=== PATIENT | female | born 1985 ===

== ENCOUNTER 2024-11-06 17:34 | Emergency (ER) | payer BC ==
[~2024-11-06] VITALS: Ht 165.1 cm; Wt 63.6 kg
[2024-11-06 17:43] VITALS: BP 129/89; PULSE 88; TEMP 98.4; O2SAT 98
[2024-11-06 17:53] VITALS: RESP 16
[2024-11-06] MEDS: HYDROcodone/acetaminophen 5mg/325mg tablet PO STA (17:53)
--- NOTE | 2024-11-06 18:19 | RADIOLOGY REPORT ---
CLINICAL INDICATION: FOOT PAIN left TECHNIQUE: 3 left foot radiographic views of the were obtained. Comparison: None FINDINGS/IMPRESSION: There is no evidence of acute fracture or dislocation. Small bony spur from the superior surface of t he navicular bone. Slight widening of the interval between the 1st and 2nd metatarsal bases up to 3 mm with no associate d soft tissue edema and normal alignment of the tarsal and metatarsals. Correlate for possible chroni c Lisfranc's injury. There is no radiopaque foreign body.
--- NOTE | 2024-11-06 18:50 | Physician Documentation ---
History of Present Illness ~ Chief Complaint: Foot pain Stated Complaint: FOOT PAIN Time Seen by MD: 18:23 HPI Patient is seen today with complaints of pain of her left foot after she dropped a large pottery type pot on the dorsum of her left foot. Patient does admit to previous bunion surgery of her left foot. She missed to pain of the 1st metatarsal of the left foot with bruising but no significant laceration but with abrasion. She has no other concern or complaint at this time. Medication Reconciliation Allergies: Coded Allergies: No Known Allergies (Unverified , 11/06/24) Review of Systems Constitutional: Denies: chills, fever, weakness Eyes: Denies: pain, blurred vision ENT: Denies: ear pain, nose pain, throat pain, mouth pain Respiratory: Denies: cough, shortness of breath Cardiovascular: Denies: chest pain, palpitations Gastrointestinal: Denies: abdominal pain, nausea, vomiting Genitourinary: Denies: burning, dysuria Female Genitalia: Denies: vaginal discharge, pelvic pain Neurological: Denies: headache, dizziness Musculoskeletal: Denies: pain, swelling Integumentary: Denies: rash, lesions Allergic/Immunologic: Denies: hives, itching Hematologic/Lymphatic: Denies: no symptoms reported Psychiatric: Denies: depression, anxiety Physical Exam Vital Signs: Temperature: 98.4, Source: Oral, Heart Rate: 88, Respiratory Rate: 16, BP: 129/89, Pulse Oximetry: 98, Weight: 63.600 Oxygen Flow Rate: 0 Physical Exam General: Awake and Alert, no acute distress. HEENT: Conjunctiva pink, Sclera clear, Mucus Membranes moist. Neck: Supple without masses and tenderness. Musculoskeletal: Patient on exam has mild ecchymosis and mild swelling and small abrasion over the 1st metatarsal of the left foot. Patient is neurovascularly intact distally. Patient has mild tenderness to palpation in that area. I do not appreciate any step-off deformity. Extremities: No cyanosis,clubbing or edema. Skin: Warm and Dry. Progress Results/Orders Results/Orders Orders - JOSHUA BOO Foot, Complete (3vw Min) (11/06/24 17:58) Completed Orders - JOSHUA BOO Foot, Complete (3vw Min) (11/06/24 17:58) Hydrocodone/Apap 5/325mg Tab ([place] 5/32 (11/06/24 17:48) Medications Received in ER Medications (Trade) Dose Ordered Sig/Magdaleno Route PRN Reason Start Time Stop Time Status Last Admin Dose Admin ([place] 5/325mg tablet) 1 tab ONCE STAT PO 11/06/24 17:48 11/06/24 17:50 DC 11/06/24 17:53 1 TAB Vital Signs 11/06/24 11/06/24 17:43 17:53 Temp 98.4 Pulse 88 Resp 15 16 B/P (MAP) 129/89 Pulse Ox 98 O2 Flow Rate 0 EKG/XRAY/CT/US/VASC/MRI Bone/Soft Tissue X-Ray (Ext.) : Additional Comment X-ray of left foot interpreted by myself today shows no sign of acute fracture, no osteolytic or blastic lesions, widening of the space between 1st and 2nd metatarsals. Evidence of previous bunionectomy. DIAGNOSTIC RADIOLOGY Patient: GELY LOUIE Medical Record: [id number] [facility] : 1985, Age: 39 Sex: Female Location: ER Patient Status: [facility] ER Service Date/Time: 11/06/241757 Ordering Physician: JOSHUA BOO PAC Exam: FOOT, COMPLETE (3VW MIN) CLINICAL INDICATION: FOOT PAIN left TECHNIQUE: 3 left foot radiographic views of the were obtained. Comparison: None FINDINGS/IMPRESSION: There is no evidence of acute fracture or dislocation. Small bony spur from the superior surface of the navicular bone. Slight widening of the interval between the 1st and 2nd metatarsal bases up to 3 mm with no associated soft tissue edema and normal alignment of the tarsal and metatarsals. Correlate for possible chronic Lisfranc's injury. There is no radiopaque foreign body. Electronically Signed by:GEORGIA MACK DO Date & Time: 11/06/241815 Dictated by: GEORGIA MACK DO Dictation date and time: 11/06/241815 Primary Care Provider: NO PRIMARY CARE PROVIDER cc: JOSHUA BOO ~ Medical Decision Making Findings Patient is seen today with complaints of pain of her left foot after she dropped a large pottery type pot on the dorsum of her left foot. Patient does admit to previous bunion surgery of her left foot. She missed to pain of the 1st metatarsal of the left foot with bruising but no significant laceration but with abrasion. She has no other concern or complaint at this time. Patient was given a [place] 5/325 mg in the ED today for pain. X-ray of left foot showed no sign of acute fracture. Patient will follow up in 7-14 days for repeat x-ray if needed. Return to ED with any worsening, concerning or changing symptoms. Departure Disposition: 01 HOME / SELF CARE / HOMELESS Impression: Primary Impression: Foot pain Qualified Codes: M79.672 - Pain in left foot Condition: Stable Discharge Instructions: Sprains Additional Instructions: Patient was given a [place] 5/325 mg in the ED today for pain. X-ray of left foot showed no sign of acute fracture. Patient will follow up in 7-14 days for repeat x-ray if needed. Return to ED with any worsening, concerning or changing symptoms. Referrals: NO PRIMARY CARE PROVIDER (PCP) Signature Scribe Signature: No scribe Attestation: No scribe JOSHUA BOO Nov 06, 2024 18:50
== END 2024-11-06 18:37 | disposition home or self-care (01) ==
LOC: ER 17:36
DX: S90.32XA Contusion of left foot, initial encounter (principal); W22.8XXA Striking against or struck by other objects, initial encounter; Y93.89 Activity, other specified; Y92.89 Other specified places as the place of occurrence of the external cause; Y99.8 Other external cause status
CPT/HCPCS: 73630; 99283